=== PATIENT | female | born 1970 | race Caucasian/White ===

== ENCOUNTER 2017-06-15 09:51 | Emergency (ER) | payer OTHER ==
[~2017-06-15] VITALS: Ht 167.6 cm; Wt 94.0 kg
[~2017-06-15 09:51] MED LIST: ALBU1AER9 INH; CITA40TA12 PO; CLON0.5T3 PO; GABA-113 PO; SYMIN160 INH; TIOTCAP INH
[2017-06-15 10:05] VITALS: TEMP 36.4; Ht 167.6 cm; Wt 94.0 kg
[2017-06-15] MEDS ORDERED: SULFAMETHOXAZOLE/TRIMETHOPRIM DS 800/160MG TAB PO STA (10:37)
[2017-06-15] MEDS ORDERED: SULF800T23 PO (10:40)
[2017-06-15] MEDS ORDERED: CEPH500C PO (10:40)
--- NOTE | 2017-06-15 10:40 | EMERGENCY ROOM VISIT NOTE ---
ED Visit Note First contact with patient: 10:13 CHIEF COMPLAINT: Infection of the right thigh HISTORY OF PRESENT ILLNESS: This 47-year-old female patient presents to the emergency department via personal vehicle complaining of a red spot on her right thigh that has started 3 days ago. The area has become red, warm, and very painful. The patient denies fever, chills, nausea, or loss of appetite. Movement of the leg is not decreased because of the pain. The patient's tetanus shot is up to date. She does report a previous history of MRSA infection. REVIEW OF SYSTEMS: A review of systems was performed with positives and pertinent negatives listed in the history of present illness. All other systems were reviewed and are negative. ALLERGIES: Reviewed in chart MEDICATIONS: Reviewed in chart PMH: Reviewed in chart SOCIAL HISTORY: She lives at home. She is a current every day smoker, denies alcohol and recreational drug use. PHYSICAL EXAM: Vital Signs: Reviewed Nurse's notes, afebrile, vital signs stable. GENERAL: Pleasant and cooperative, in no acute distress, is non toxic in appearance, well-developed, well-nourished. SKIN: There is a small area of erythema on the right medial thigh, approximately 4 cm diameter. It is warm, very tender to palpation, and mildly swollen. There is no lymphangitic streaking. There is no discharge. There is no fluctuance. There is minimal induration. HEART: Regular rate and rhythm without murmur, gallop, or rub. LUNGS : Clear to auscultation bilaterally without wheezes, rales, or rhonchi. NEURO: Alert and oriented to person, place, and time. Normal sensation to light and sharp touch. Capillary reflex less than 2 seconds. Peripheral pulses 2 + bilaterally. EMERGENCY DEPARTMENT COURSE: I examined the patient. Differential diagnosis includes cellulitis, abscess, insect bite, MRSA infection. The area is quite small, I do not suspect an abscess as there is no fluctuance, I do not feel any labs or imaging are warranted at this time. Given the patient's history of previous MRSA infection, will treat patient with Keflex and Bactrim for broad coverage of cellulitis. Patient was given her first dose of both of these antibiotics in the ED, and prescriptions were sent to her pharmacy. Patient was instructed on management at home, as well as encouraged follow-up with her PCP, and return precautions should her symptoms worsen, she verbalized understanding. Patient was discharged home in stable condition and ambulatory. Problem List Medical Problems: (1) Acute Bronchitis Status: Resolved (2) Acute Pharyngitis Status: Resolved (3) Acute Uri Nos Status: Resolved (4) Asthma, Unspecified Status: Chronic (5) Back pain Status: Resolved (6) Benign essential hypertension Status: Chronic (7) Chronic Sinusitis Nos Status: Chronic (8) COPD (chronic obstructive pulmonary disease) Status: Chronic (9) COPD exacerbation Status: Resolved (10) Esophageal Reflux Status: Chronic (11) Gastroenteritis Status: Resolved (12) Hypertension Nos Status: Chronic (13) Low back pain Status: Resolved (14) Pneumonia Status: Resolved (15) Right foot pain Status: Resolved (16) Toe fracture, left Status: Resolved (17) Toe fracture, left Status: Resolved Surgical Problems: (1) Appendectomy Status: Resolved (2) Lumpectomy of breast Status: Resolved Current/Historical Medications Scheduled Amphetamine-Dextroamphetamine (Amphetamine/Dextroampheta), 30 MG PO BID Budesonide/Formoterol Fumarate (Symbicort 160/4.5 Inhaler ), 2 PUFFS INH BID Cephalexin Monohydrate (Keflex), 500 MG PO QID Citalopram Hydrobromide (Celexa), 40 MG PO DAILY Gabapentin (Neurontin), 600 MG PO TID Hctz/Lisinopril (Lisinopril/Hctz 10/12.5 Mg), 1 TAB PO DAILY Hydroxyzine HCl (Hydroxyzine Pamoate), 25 MG PO TID Lamotrigine (Lamictal), 1 TAB PO BID Sulfa/Trimethoprim (Bactrim Ds 800MG/160MG), 1 TAB PO BID Scheduled PRN Albuterol Sulfate (Proair Respiclick), 2 PUFFS INH Q4 PRN for Wheezing Allergies Coded Allergies: Prochlorperazine (Verified Adverse Reaction, Severe, DYSTONIA, 06/18/16) DYSTONIA Vital Signs Date Time Temp Pulse Resp B/P (MAP) Pulse Ox O2 Delivery O2 Flow Rate FiO2 06/15/17 11:20 73 18 138/83 96 06/15/17 10:05 36.4 84 20 149/94 96 Nasal Cannula Medications Administered Medications (Trade) Dose Ordered Sig/Veronica Route Start Time Stop Time Status Last Admin Dose Admin Cephalexin Monohydrate (Keflex Cap) 500 mg NOW ONCE PO 06/15/17 10:45 06/15/17 10:46 DC 06/15/17 10:45 500 MG Trimethoprim/ Sulfamethoxazole (Septra Ds 800/ 160MG Tab) 1 tab NOW STAT PO 06/15/17 10:37 06/15/17 10:38 DC 06/15/17 10:45 1 TAB Departure Information Impression Primary Impression: Cellulitis of right thigh Dispostion Home / Self-Care Condition GOOD Prescriptions Sulfa/Trimethoprim (Bactrim Ds 800MG/160MG) Tab 1 TAB PO BID for 10 Days, #20 TAB Prov: TrinaSalvatoreDunia Angely, DENA 06/15/17 Cephalexin Monohydrate (Keflex) 500 Mg Cap 500 MG PO QID for 10 Days, #40 CAP Prov: TrinaSalvatoreDunia Angely, BAR ASSISTANT 06/15/17 Referrals No Doctor, Assigned (PCP) Patient Instructions ED Infec Skin Cellulitis, [facility] Additional Instructions You were seen in the Emergency Department for cellulitis. You have been prescribed Keflex and Bactrim to be taken for 10 days. Both of these medications are antibiotics. Stop these medications and contact a medical provider if you were to develop any significant adverse side effects including: wheezing, shortness of breath, passing out, vomiting, or a diffuse rash. Always take antibiotics as directed and COMPLETE the ENTIRE course regardless of the improvement of your symptoms. You should take an [id number] probiotic layer on the antibiotics, to help prevent diarrhea. Look for signs of worsening infection of the wound including: increased pain, swelling, foul discharge, streaking, or fevers/chills/feeling ill. If any of these are noticed you should return to the Emergency Department for further assessment and treatment. For pain control, you can use the following [id number] medicines (if >12 yo): - Extra strength (500mg/tab) Tylenol (acetaminophen) 1-2 tabs every 6-8 hours as needed. Do not exceed 6 tablets in a 24 hour period. Avoid taking more than 3 grams (3000 mg) of Tylenol per day. This includes any other sources of acetaminophen you may take on a regular basis. - Regular strength (200 mg/tab) Advil (ibuprofen) 1-2 tabs every 4-6 hours as needed. Do not exceed a dose of 2400 mg per day. Apply warm compresses to the area to help with pain and also to help improve the infection. Follow up with your PCP in 2 days for recheck, or sooner for worsening symptoms. Return to the emergency department if your symptoms worsen despite treatment course outlined above. Work Instructions Return To Work: 1 day
[2017-06-15] MEDS ORDERED: CEPHALEXIN MONOHYDRATE 250 MG CAP PO ONE (10:45)
[2017-06-15] MEDS ORDERED: LSN/10125 PO (11:12)
[2017-06-15] MEDS ORDERED: VST25HP PO (11:12)
[2017-06-15] MEDS ORDERED: AMPH30TA PO (11:12)
[2017-06-15] MEDS ORDERED: ALBU18002 INH (11:13)
[2017-06-15] MEDS ORDERED: LAMO25TA PO (11:14)
[2017-06-15 11:20] VITALS: BP 138/83; PULSE 73; O2SAT 96
== END 2017-06-15 11:21 | disposition home or self-care (01) ==
LOC: C.EDB 09:52
DX: L03.115 Cellulitis of right lower limb (principal); F17.200 Nicotine dependence, unspecified, uncomplicated; J45.909 Unspecified asthma, uncomplicated; I10 Essential (primary) hypertension; J32.9 Chronic sinusitis, unspecified; J44.9 Chronic obstructive pulmonary disease, unspecified; K21.9 Gastro-esophageal reflux disease without esophagitis; Z86.14 Personal history of Methicillin resistant Staphylococcus aureus infection

== ENCOUNTER 2018-01-13 20:51 | Emergency (ER) | payer OTHER ==
[~2018-01-13] VITALS: Ht 167.6 cm; Wt 91.2 kg
[~2018-01-13 20:51] MED LIST changes: +ALBU18002 INH; -ALBU1AER9 INH; +AMPH30TA PO; -CLON0.5T3 PO; +LAMO25TA PO; +LSN/10125 PO; -TIOTCAP INH; +VST25HP PO
[2018-01-13 20:58] VITALS: TEMP 36.8; Ht 167.6 cm; Wt 91.2 kg
[2018-01-13] MEDS ORDERED: MoRPHine SULFATE 10 MG/ML CARP/VIAL IM STA (21:49)
[2018-01-13] MEDS ORDERED: KETOROLAC TROMETHAMINE 60 MG/2 ML VIAL IM STA (21:49)
[2018-01-13] MEDS ORDERED: OXYCODONE IR HOME PACK PO ONE (22:00)
[2018-01-13] MEDS ORDERED: FLEXERIL HOME PACK 10 MG VIAL PO ONE (22:00)
[2018-01-13 22:58] VITALS: BP 163/114; PULSE 75; O2SAT 96
[2018-01-13] MEDS ORDERED: OXYC1TAB3 PO (22:58)
[2018-01-13] MEDS ORDERED: CYCL10TA6 PO (22:58)
--- NOTE | 2018-01-13 23:20 | EMERGENCY ROOM VISIT NOTE ---
History First contact with patient: 21:11 Chief Complaint: BACK PAIN Stated Complaint: BACK PAIN History of Present Illness The patient is a 47 year old female who presents to the Emergency Room with complaints of generalized back pain. Patient reports a history of chronic back pain. She has previously been under the management of [facility] several years ago. The patient reports that she usually "just deals with the pain". The patient reports that she recently moved to a new [facility] apartment, and flared up her back pain again. She has tried multiple things for her back pain, including use of her TENS unit, heat, ice, Tylenol, ibuprofen and Aleve. She also reports a history of sciatica, but denies any worsening pain radiating into the buttocks or down the legs. She denies headache, chest pain or shortness of breath. The patient reports that she recently had an adjustment of her gabapentin to 300 mg twice daily. The patient denies any recent falls or other traumatic injuries to the back. She rates her discomfort an 8 out of 10. Her pain is worsened with movement. Review of Systems 10 system review was performed and was negative except for pertinent positives and negatives as indicated in history of present illness Past Medical/Surgical History Medical Problems: (1) Acute Bronchitis (2) Acute Pharyngitis (3) Acute Uri Nos (4) Asthma, Unspecified (5) Back pain (6) Benign essential hypertension (7) Chronic Sinusitis Nos (8) COPD (chronic obstructive pulmonary disease) (9) COPD exacerbation (10) Esophageal Reflux (11) Gastroenteritis (12) Hypertension Nos (13) Low back pain (14) Pneumonia (15) Right foot pain (16) Toe fracture, left (17) Toe fracture, left Surgical Problems: (1) Appendectomy (2) Lumpectomy of breast Family History Cancer Diabetes mellitus Heart disease Hypertension Lung disease Social History Smoking Status: Current Every Day Smoker Alcohol Use: none Drug Use: none Marital Status: single Occupation Status: unemployed Current/Historical Medications Scheduled Citalopram Hydrobromide (Celexa), 40 MG PO DAILY Gabapentin (Neurontin), 600 MG PO TID Hctz/Lisinopril (Lisinopril/Hctz 10/12.5 Mg), 1 TAB PO DAILY Scheduled PRN Albuterol Sulfate (Proair Respiclick), 2 PUFFS INH Q4 PRN for Wheezing Cyclobenzaprine Hcl (Flexeril), 10 MG PO TID PRN for spasm Oxycodone Ir (Roxicodone Ir), 1-2 TAB PO Q4H PRN for Pain Physical Exam Vital Signs Date Time Temp Pulse Resp B/P (MAP) Pulse Ox O2 Delivery O2 Flow Rate FiO2 01/13/18 20:58 36.8 79 18 179/109 98 Room Air Physical Exam CONSTITUTIONAL: Healthy and well nourished. Alert and oriented X 3 with positive affect. Patient appears in moderate discomfort. HEENT: Normocephalic, atraumatic. Pupils equal, round and reactive. No scleral icterus or conjunctival injection. NECK: Full active range of motion without discomfort. Minimal tenderness to palpation of the lower cervical paraspinous muscles. RESPIRATORY: Clear to auscultation bilaterally with no wheezing, crackles, rhonchi or stridor. CARDIOVASCULAR: Regular rate and rhythm with no murmurs, rubs or gallops. GASTROINTESTINAL: Bowel sounds present in all quadrants. Soft and nontender to palpation. MUSCULOSKELETAL: Examination shows generalized tenderness to palpation of the thoracolumbar paraspinous muscles. Negative logroll. Negative straight leg raise. INTEGUMENTARY: No rash or other significant dermatologic conditions noted. NEUROLOGIC: No focal neurologic deficits noted. Medical Decision & Procedures Medications Administered Medications (Trade) Dose Ordered Sig/Veronica Route Start Time Stop Time Status Last Admin Dose Admin Ketorolac Tromethamine (Toradol Inj) 60 mg NOW STAT IM 01/13/18 21:49 01/13/18 21:50 DC 01/13/18 22:01 60 MG Morphine Sulfate (MoRPHine SULFATE INJ) 10 mg NOW STAT IM 01/13/18 21:49 01/13/18 21:50 DC 01/13/18 22:01 10 MG Cyclobenzaprine HCl (FLEXERIL 10MG Home Pack) 1 homepack UD ONCE PO 01/13/18 22:00 01/13/18 22:01 DC 01/13/18 22:00 1 HOMEPACK Oxycodone HCl (Roxicodone Immediate Rel 5MG Home Pack) 1 homepack UD ONCE PO 01/13/18 22:00 01/13/18 22:01 DC 01/13/18 22:00 1 HOMEPACK ED Course Patient history and physical exam were performed. Nurse's notes were reviewed. Vital signs were reviewed, showing an elevated blood pressure 179/109. She does appear in moderate distress. The patient was administered IM morphine and Toradol. She refused any antiemetics, denying any nausea. The patient had reduction of her pain to a 5 out of 10, reporting that it is manageable and requested discharge home. The patient will be provided home packs and prescriptions for Flexeril and OxyIR. No drinking or driving while taking these medications. She was encouraged to also continue alternating ibuprofen and Tylenol every 4 hours for baseline pain relief. I did encourage the patient to follow-up with her PCP early next week for recheck. Return to the emergency department for uncontrollable pain or other concerning symptoms. The patient was happy with plan of care, and voiced understanding of all discharge instructions. The patient also had a persistent elevated blood pressure at the time of discharge. She was instructed to have her blood pressure rechecked by her PCP next week. Medical Decision Given patient history, I suspect musculoskeletal strain. The patient denies any trauma to warrant additional imaging studies. I do not suspect cardiopulmonary etiology, renal etiology or intra-abdominal etiology. Her pain is worsened with movement, and has tenderness to palpation of the paraspinous muscles. [facility] Drug Monitoring Program Search Results: patient reviewed within database, no issues identified Medication Reconcilliation Current Medication List: was personally reviewed by me Blood Pressure Screening Patient's blood pressure: Elevated blood pressure Blood pressure disposition: Referred to PCP Impression Primary Impression: Back strain Additional Impression: Elevated blood pressure reading Departure Information Dispostion Home / Self-Care Prescriptions Oxycodone Ir (Roxicodone Ir) 5 Mg Tab 1-2 TAB PO Q4H Y for Pain, #15 TAB For Initial Treatment Prov: Greg Sofia PA 01/13/18 Cyclobenzaprine Hcl (FLEXERIL) 10 Mg Tab 10 MG PO TID Y for spasm, #15 TAB Prov: Greg Sofia PA 01/13/18 Forms HOME CARE DOCUMENTATION FORM, IMPORTANT VISIT INFORMATION Patient Instructions [facility] Additional Instructions Intermittently apply heat to back. Avoid heavy lifting or sitting for long periods of time. Ibuprofen 800 mg and/or Tylenol 1000 mg every 8 hours. You may also alternate these medications for more effective pain relief: Ibuprofen --4 HRS--> Tylenol --4 HRS--> ibuprofen --4 HRS--> Tylenol .... Flexeril to prevent spasm. OxyIR if needed for worse pain. Do not drink alcohol or drive while taking these medications. Follow-up with your PCP for recheck in 2-3 days. Return to the emergency department for any progressively worsening/ uncontrollable pain. Your blood pressure was elevated in the emergency department (179/109, 163/114) . Follow-up with your PCP for blood pressure recheck. Problem Qualifiers Primary Impression: Back strain Encounter type: initial encounter Qualified Codes: S39.012A - Strain of muscle, fascia and tendon of lower back, initial encounter
== END 2018-01-13 22:58 | disposition home or self-care (01) ==
LOC: C.EDB 20:52 → C.EDD 22:58
DX: S39.012A Strain of muscle, fascia and tendon of lower back, initial encounter (principal); X58.XXXA Exposure to other specified factors, initial encounter; I10 Essential (primary) hypertension; J45.909 Unspecified asthma, uncomplicated; G89.29 Other chronic pain; J44.9 Chronic obstructive pulmonary disease, unspecified; K21.9 Gastro-esophageal reflux disease without esophagitis; Z87.01 Personal history of pneumonia (recurrent); F17.210 Nicotine dependence, cigarettes, uncomplicated; Z79.899 Other long term (current) drug therapy; Z80.9 Family history of malignant neoplasm, unspecified; Z83.3 Family history of diabetes mellitus; Z82.49 Family history of ischemic heart disease and other diseases of the circulatory system

== ENCOUNTER 2020-12-06 21:48 | Inpatient (IN) ==
[2020-12-06 22:43] LABS: Basophils # (auto) 0.04 K/uL (0-0.2); Basophils % (auto) 0.5 %; Eosinophils # (auto) 0.29 K/uL (0-0.5); Eosinophils % (auto) 3.7 %; Hematocrit (blood only) 33.8 % (37-47); Hemoglobin 10.7 g/dL (12.0-16.0); Immature Granulocytes # (auto) 0.01 K/uL (0.00-0.02); Immature Granulocytes % (auto) 0.1 %; Lymphocytes # (auto) 2.27 K/uL (1.2-3.4); Lymphocytes % (auto) 28.8 %; Mean Corpuscular Hemoglobin 25.1 pg (25-34); Mean Corpuscular Hgb Conc 31.7 g/dL (32-36); Mean Corpuscular Volume 79.3 fL (80-100); Mean Platelet Volume 11.8 fL (7.4-10.4); Monocytes # (auto) 0.43 K/uL (0.11-0.59); Monocytes % (auto) 5.5 %; Neutrophils # (auto) 4.84 K/uL (1.4-6.5); Neutrophils % (auto) 61.4 %; Platelet Count 239 K/uL (130-400); RDW Coefficient of Variation 17.3 % (11.5-14.5); RDW Standard Deviation 49.7 fL (36.4-46.3); Red Blood Count 4.26 M/uL (4.2-5.4); White Blood Count 7.88 K/uL (4.8-10.8)
[2020-12-06 22:47] LABS: Appearance Urine Cloudy (Clear); Bacteria Urine Automated Negative (Negative); Bilirubin Urine Negative (Negative); Blood Urine 3+ (Negative); Color Urine Orange; Epithelial Cell Urine Auto >30 /lpf (0-5); Glucose Urine UA Negative (Negative); Ketones Urine Trace (Negative); Leukocyte Esterase Urine Trace (Negative); Nitrite Urine Negative (Negative); Protein Urine Trace (Negative); RBC Urine Automated >30 /hpf (0-4); Specific Gravity Urine 1.027 (1.000-1.030); Urobilinogen Urine Negative (Negative); pH Urine 6.5 (4.5-7.5)
[2020-12-06 22:51] LABS: Partial Thromboplastin Ratio 0.9; Partial Thromboplastin Time 23.9 Seconds (21.0-31.0)
[2020-12-06 23:00] LABS: Alanine Aminotransferase 19 U/L (12-78); Albumin Level 3.4 gm/dl (3.4-5.0); Aspartate Aminotransferase 9 U/L (15-37); BUN Creatinine Ratio 10.7 (10-20); Blood Urea Nitrogen 9 mg/dl (7-18); Carbon Dioxide 26 mmol/L (21-32); Chloride 108 mmol/L (98-107); Est GFR (African American) 93.9; Glucose 87 mg/dl (70-99); Magnesium 2.1 mg/dl (1.8-2.4); Sodium 140 mmol/L (136-145)
[2020-12-06 23:04] LABS: Amphetamines+Metham, Urine Pos (Neg); Barbiturates, Urine Neg (Neg); Benzodiazepine, Urine Pos (Neg); Cocaine, Urine Neg (Neg); MDMA (Ecstacy), Urine Neg (Neg); Methadone, Urine Neg (Neg); Opiate, Urine Neg (Neg); Phencyclidine, Urine Neg (Neg)
[2020-12-06] MEDS ORDERED: OPTIRAY 320 125ml IV ONE (23:10)
[2020-12-06 23:11] LABS: Albumin Globulin Ratio 0.8 (0.9-2); Alkaline Phosphatase 77 U/L (45-117); Bilirubin,Total 0.2 mg/dl (0.2-1); Globulin 4.3 gm/dl (2.5-4.0); Total Protein 7.7 gm/dl (6.4-8.2); Troponin I < 0.015 ng/ml (0-0.045)
[2020-12-06 23:24] LABS: T4 Free Thyroxine 0.94 ng/dl (0.8-1.6)
--- NOTE | 2020-12-07 00:50 | Emergency Department Note ---
History of Present Illness General Chief complaint: Stroke/CVA Symptoms Stated complaint: PT THINKS SHE HAD MINI [id number] TO TALK Time Seen by Provider: 12/06/20 22:01 History of Present Illness Maximum Pain Intensity: 7 This is a 50-year-old female presenting to the emergency department for evaluation of possible mini strokes. The patient states that yesterday around 12 noon, nearly 36 hours ago, she had an episode of dizziness, difficulty speaking, and facial tingling. The episode lasted less than 5 minutes before improving. The patient was somewhat confused after this occurred but did not seek additional medical intervention. She went through the rest of her day w ithout difficulty, and states that this morning around 8 AM she had another similar episode. The patient has an autistic son at home and elected to wait until he went to bed before seeking additional medical care. The patient has a history of COPD. She has not had any fevers or chills. She currently is asymptomatic and has not had difficulty moving her arms or legs. She did have symptoms like this in her 20s, which were felt to be related to control. She has not had any recurrent symptoms since then. She rates her current discomfort a 4/10. Home Medications Medication Instructions Recorded Confirmed Type albuterol sulfate [ProAir HFA] 2 puff INHALATION Q4H PRN 06/24/18 12/07/20 History citalopram [Celexa] 40 mg PO QAM 06/24/18 12/07/20 History albuterol sulfate 2.5 mg INH QID PRN #1 box 10/10/18 12/07/20 Rx Spiriva with HandiHaler 1 cap INHALATION QAM 05/29/19 12/06/20 History zolpidem [Ambien] 10 mg PO HS PRN 05/29/19 12/07/20 History fluticasone propionate 2 spray INTRANASAL BID PRN 06/18/20 12/07/20 History loratadine [Claritin] 10 mg PO QAM 06/18/20 12/07/20 History meloxicam 7.5 mg PO DAILY 06/18/20 12/07/20 History montelukast [Singulair] 10 mg PO QAM 06/18/20 12/07/20 History alprazolam 0.25 mg PO BID 12/06/20 12/07/20 History dextroamphetamine-amphetamine 20 mg PO BID 12/06/20 12/07/20 History fluticasone propion-salmeterol 1 ea INHALATION BID 12/06/20 12/07/20 History gabapentin 600 mg PO TID 12/06/20 12/07/20 History levothyroxine 100 mcg PO DAILY 12/06/20 12/07/20 History lamotrigine 100 mg PO BID 12/07/20 12/07/20 History lisinopril-hydrochlorothiazide 1 tab PO DAILY 12/07/20 12/07/20 History Allergies Allergy/AdvReac Type Severity Reaction Status Date / Time prochlorperazine AdvReac Severe facial Verified 12/07/20 00:31 dystonia Past Med/Surg History Medical History ADD (attention deficit disorder) Bipolar disorder COPD (chronic obstructive pulmonary disease) controlled Degenerative disc disease left hip/LE radiculopathy GERD (gastroesophageal reflux disease) controlled Hypertension Obesity Thyroid nodule Surgical History History of appendectomy History of lumpectomy of left breast 2012 Family History Father Family history of diabetes mellitus Social History (Updated 06/18/20 @ 16:04 by Gela Temple RN) Smoking Status: Current every day smoker Tobacco Type: Cigarettes Cigarettes Per Day: 15 cigarettes/day (total tobacco use x 25+ years); Second Hand Exposure: No; Tobacco Cessation Education Requested by Patient: No Hx Alcohol Use: No Hx Substance Use: No Preferred Language: Gibraltarian Communication Ability: Effective Licensing Director Required: No Beliefs That Will Affect Care: None marital status: Current Living Situation: Family current occupational status: disabled Other Information That Helps Us Care for You: No Feels Safe at Home: Yes Safety Concerns: Feels Safe At This Time Assistive Devices: Glasses Review of Systems A total of 10 systems reviewed and were otherwise negative Physical Exam Vital Signs Vital Signs - 24 hr 12/06/20 21:52 12/06/20 22:05 12/06/20 22:32 Temperature 36.3 C L Temperature Source Oral Pulse Rate 101 H 84 Pulse Rate from SpO2 Sensor 84 Respiratory Rate 22 16 Respiratory Depth Normal Blood Pressure 141/100 H 137/85 Blood Pressure Mean 113 102 Pulse Oximetry 99 94 97 Oxygen Delivery Method Room Air Room Air Sepsis New/Unexplained Change in Mental Status N/A Sepsis Action Taken by Nursing No Action Required 12/06/20 23:00 12/06/20 23:38 12/07/20 00:00 Temperature Temperature Source Pulse Rate 83 102 H 79 Pulse Rate from SpO2 Sensor 83 101 H 79 Respiratory Rate 15 20 15 Respiratory Depth Blood Pressure 154/96 H 206/137 H 195/116 H Blood Pressure Mean 115 160 142 Pulse Oximetry 96 97 97 Oxygen Delivery Method Room Air Room Air Room Air Sepsis New/Unexplained Change in Mental Status Sepsis Action Taken by Nursing 12/07/20 00:07 12/07/20 00:30 12/07/20 01:00 Temperature Temperature Source Pulse Rate 90 83 81 Pulse Rate from SpO2 Sensor 103 H 82 81 Respiratory Rate 20 14 17 Respiratory Depth Blood Pressure 170/106 H 160/111 H 183/127 H Blood Pressure Mean 127 127 145 Pulse Oximetry 99 96 96 Oxygen Delivery Method Room Air Room Air Room Air Sepsis New/Unexplained Change in Mental Status Sepsis Action Taken by Nursing 12/07/20 01:30 Temperature Temperature Source Pulse Rate 91 H Pulse Rate from SpO2 Sensor 93 H Respiratory Rate 20 Respiratory Depth Blood Pressure 163/126 H Blood Pressure Mean 138 Pulse Oximetry 96 Oxygen Delivery Method Room Air Sepsis New/Unexplained Change in Mental Status Sepsis Action Taken by Nursing VITALS: Vitals are noted on the nurse's note and reviewed by myself. Vital signs stable. GENERAL: Well-developed, well-nourished, white female, who is in no acute distress and resting comfortably. Patient is cooperative with the examination. HEAD: Normocephalic atraumatic. EARS: External ear normal. External auditory canals clear, tympanic membranes pearly joya without erythema or effusion bilaterally. EYES: Pupils equal round and reactive to light and accommodation. Conjunctivae without injection, sclerae without icterus. Extraocular movements intact. NOSE: Patent, turbinates without inflammation or discharge. MOUTH: Mucous membranes moist. Tonsils are not enlarged. Pharynx without erythema, blood, or exudate. Uvula midline. Airway patent. NECK: Supple without nuchal rigidity. No lymphadenopathy. No thyromegaly. Cervical spine is nontender. HEART: Regular rate and rhythm without murmurs gallops or rubs. LUNGS: Wheezing bilateral ABDOMEN: Positive normal bowel sounds x 4. Soft, nontender, without masses or organomegaly. No guarding or rebound tenderness. MUSCULOSKELETAL: No muscle atrophy, erythema, or edema noted. Full range of motion in all extremities. No tenderness to palpation. Strength 5/5 throughout. NEURO: Patient was alert and oriented to person place and time. CN II through XII grossly intact. No focal neurological deficits. Deep tendon reflexes 2+ throughout. GCS 15. Stroke scale 0. SKIN: The skin was without rashes, erythema, edema, or bruising. Capillary refill less than 2 seconds. Course Administered Medications Discontinued Medications Ioversol (Optiray 320 125ml) 118 ml IV ONCE ONE Stop: 12/06/20 23:11 Last Admin: 12/06/20 23:11 Dose: 1 ml Documented by: [id number] Oxycodone HCl (Oxycodone Hcl Ir 5 Mg Tab (Immediate Release)) 5 mg PO NOW STA Stop: 12/07/20 01:54 Last Admin: 12/07/20 02:13 Dose: 5 mg Documented by: [id number] Medical Decision Making Differential Diagnosis Differential diagnosis: Etiologies such as stroke, TIA, benign positional vertigo, labrynthitis, dehydration, hypovolemia, anemia, tumor, infection, hypoglycemia, electrolyte abnormalities, cardiac sources, toxicological sources, central neurologic process, as well as others were entertained. Laboratory Data Result diagrams: 12/06/20 22:27 12/06/20 22:29 Lab Results 12/06/20 12/06/20 12/06/20 Range/Units 22:20 22:20 22:27 WBC (4.8-10.8) K/uL RBC (4.2-5.4) M/uL Hgb (12.0-16.0) g/dL Hct (37-47) % MCV (80-100) fL MCH (25-34) pg MCHC (32-36) g/dL RDW Std Deviation (36.4-46.3) fL RDW Coeff of Gilbert (11.5-14.5) % Plt Count (130-400) K/uL MPV (7.4-10.4) fL Immature Gran % (Auto) % Neut % (Auto) % Lymph % (Auto) % [place] % (Auto) % Eos % (Auto) % Baso % (Auto) % Neut # (Auto) (1.4-6.5) K/uL Lymph # (Auto) (1.2-3.4) K/uL [place] # (Auto) (0.11-0.59) K/uL Eos # (Auto) (0-0.5) K/uL Baso # (Auto) (0-0.2) K/uL Immature Gran # (Auto) (0.00-0.02) K/uL PT 10.0 (9.0-12.0) Seconds INR 1.0 (0.9-1.1) APTT 23.9 (21.0-31.0) Seconds PTT Ratio 0.9 Sodium (136-145) mmol/L Potassium (3.5-5.1) mmol/L Chloride (98-107) mmol/L Carbon Dioxide (21-32) mmol/L Anion Gap (3-11) BUN (7-18) mg/dl Creatinine (0.6-1.2) mg/dl Est Cr Clr Drug Dosing ml/min Est GFR ( Amer) Est GFR (Non-Af Amer) BUN/Creatinine Ratio (10-20) Glucose (70-99) mg/dl Calcium (8.5-10.1) mg/dl Magnesium (1.8-2.4) mg/dl Total Bilirubin (0.2-1) mg/dl AST (15-37) U/L ALT (12-78) U/L Alkaline Phosphatase (45-117) U/L Troponin I (0-0.045) ng/ml Total Protein (6.4-8.2) gm/dl Albumin (3.4-5.0) gm/dl Globulin (2.5-4.0) gm/dl Albumin/Globulin Ratio (0.9-2) TSH (0.300-4.500) uIu/ml Free T4 (0.8-1.6) ng/dl Urine Color Urine Appearance (Clear) Urine pH (4.5-7.5) Ur Specific [place] (1.000-1.030) Urine Protein (Negative) Urine Glucose (UA) (Negative) Urine Ketones (Negative) Urine Blood (Negative) Urine Nitrite (Negative) Urine Bilirubin (Negative) Urine Urobilinogen (Negative) Ur Leukocyte Esterase (Negative) Urine WBC (Auto) (0-5) /hpf Urine RBC (Auto) (0-4) /hpf U Hyaline Cast (Auto) (0-5) /lpf U Epithel Cells (Auto) (0-5) /lpf Urine Bacteria (Auto) (Negative) Urine Opiates Screen (Neg) Ur Methadone, Qual (Neg) Urine Barbiturates (Neg) Ur Phencyclidine (PCP) (Neg) U Amphetamin/Meth Scrn (Neg) MDMA (Ecstasy) Screen (Neg) U Benzodiazepines Scrn (Neg) Ur Cocaine Metabolite (Neg) U Marijuana (THC) Screen (Neg) COVID-19 [id number] SARS-[facility]-2, RNA, NAAT NEGATIVE (NEGATIVE) 12/06/20 12/06/20 12/06/20 Range/Units 22:27 22:29 22:29 WBC 7.88 (4.8-10.8) K/uL RBC 4.26 (4.2-5.4) M/uL Hgb 10.7 L (12.0-16.0) g/dL Hct 33.8 L (37-47) % MCV 79.3 L (80-100) fL MCH 25.1 (25-34) pg MCHC 31.7 L (32-36) g/dL RDW Std Deviation 49.7 H (36.4-46.3) fL RDW Coeff of Gilbert 17.3 H (11.5-14.5) % Plt Count 239 (130-400) K/uL MPV 11.8 H (7.4-10.4) fL Immature Gran % (Auto) 0.1 % Neut % (Auto) 61.4 % Lymph % (Auto) 28.8 % [place] % (Auto) 5.5 % Eos % (Auto) 3.7 % Baso % (Auto) 0.5 % Neut # (Auto) 4.84 (1.4-6.5) K/uL Lymph # (Auto) 2.27 (1.2-3.4) K/uL [place] # (Auto) 0.43 (0.11-0.59) K/uL Eos # (Auto) 0.29 (0-0.5) K/uL Baso # (Auto) 0.04 (0-0.2) K/uL Immature Gran # (Auto) 0.01 (0.00-0.02) K/uL PT (9.0-12.0) Seconds INR (0.9-1.1) APTT (21.0-31.0) Seconds PTT Ratio Sodium 140 (136-145) mmol/L Potassium 4.0 (3.5-5.1) mmol/L Chloride 108 H (98-107) mmol/L Carbon Dioxide 26 (21-32) mmol/L Anion Gap 7.0 (3-11) BUN 9 (7-18) mg/dl Creatinine 0.85 (0.6-1.2) mg/dl Est Cr Clr Drug Dosing 99.0 ml/min Est GFR ( Amer) 93.9 Est GFR (Non-Af Amer) 81.0 BUN/Creatinine Ratio 10.7 (10-20) Glucose 87 (70-99) mg/dl Calcium 9.0 (8.5-10.1) mg/dl Magnesium 2.1 (1.8-2.4) mg/dl Total Bilirubin 0.2 (0.2-1) mg/dl AST 9 L (15-37) U/L ALT 19 (12-78) U/L Alkaline Phosphatase 77 (45-117) U/L Troponin I < 0.015 (0-0.045) ng/ml Total Protein 7.7 (6.4-8.2) gm/dl Albumin 3.4 (3.4-5.0) gm/dl Globulin 4.3 H (2.5-4.0) gm/dl Albumin/Globulin Ratio 0.8 L (0.9-2) TSH 18.000 H (0.300-4.500) uIu/ml Free T4 0.94 (0.8-1.6) ng/dl Urine Color [place] Urine Appearance Cloudy A (Clear) Urine pH 6.5 (4.5-7.5) Ur Specific [place] 1.027 (1.000-1.030) Urine Protein Trace H (Negative) Urine Glucose (UA) Negative (Negative) Urine Ketones Trace H (Negative) Urine Blood 3+ H (Negative) Urine Nitrite Negative (Negative) Urine Bilirubin Negative (Negative) Urine Urobilinogen Negative (Negative) Ur Leukocyte Esterase Trace H (Negative) Urine WBC (Auto) 1-5 (0-5) /hpf Urine RBC (Auto) >30 H (0-4) /hpf U Hyaline Cast (Auto) 1-5 (0-5) /lpf U Epithel Cells (Auto) >30 H (0-5) /lpf Urine Bacteria (Auto) Negative (Negative) Urine Opiates Screen (Neg) Ur Methadone, Qual (Neg) Urine Barbiturates (Neg) Ur Phencyclidine (PCP) (Neg) U Amphetamin/Meth Scrn (Neg) MDMA (Ecstasy) Screen (Neg) U Benzodiazepines Scrn (Neg) Ur Cocaine Metabolite (Neg) U Marijuana (THC) Screen (Neg) COVID-19 Eval Order SARS-CoV-2, RNA, NAAT (NEGATIVE) 12/06/20 Range/Units 22:29 WBC (4.8-10.8) K/uL RBC (4.2-5.4) M/uL Hgb (12.0-16.0) g/dL Hct (37-47) % MCV (80-100) fL MCH (25-34) pg MCHC (32-36) g/dL RDW Std Deviation (36.4-46.3) fL RDW Coeff of Gilbert (11.5-14.5) % Plt Count (130-400) K/uL MPV (7.4-10.4) fL Immature Gran % (Auto) % Neut % (Auto) % Lymph % (Auto) % [place] % (Auto) % Eos % (Auto) % Baso % (Auto) % Neut # (Auto) (1.4-6.5) K/uL Lymph # (Auto) (1.2-3.4) K/uL [place] # (Auto) (0.11-0.59) K/uL Eos # (Auto) (0-0.5) K/uL Baso # (Auto) (0-0.2) K/uL Immature Gran # (Auto) (0.00-0.02) K/uL PT (9.0-12.0) Seconds INR (0.9-1.1) APTT (21.0-31.0) Seconds PTT Ratio Sodium (136-145) mmol/L Potassium (3.5-5.1) mmol/L Chloride (98-107) mmol/L Carbon Dioxide (21-32) mmol/L Anion Gap (3-11) BUN (7-18) mg/dl Creatinine (0.6-1.2) mg/dl Est Cr Clr Drug Dosing ml/min Est GFR ( Amer) Est GFR (Non-Af Amer) BUN/Creatinine Ratio (10-20) Glucose (70-99) mg/dl Calcium (8.5-10.1) mg/dl Magnesium (1.8-2.4) mg/dl Total Bilirubin (0.2-1) mg/dl AST (15-37) U/L ALT (12-78) U/L Alkaline Phosphatase (45-117) U/L Troponin I (0-0.045) ng/ml Total Protein (6.4-8.2) gm/dl Albumin (3.4-5.0) gm/dl Globulin (2.5-4.0) gm/dl Albumin/Globulin Ratio (0.9-2) TSH (0.300-4.500) uIu/ml Free T4 (0.8-1.6) ng/dl Urine Color Urine Appearance (Clear) Urine pH (4.5-7.5) Ur Specific [place] (1.000-1.030) Urine Protein (Negative) Urine Glucose (UA) (Negative) Urine Ketones (Negative) Urine Blood (Negative) Urine Nitrite (Negative) Urine Bilirubin (Negative) Urine Urobilinogen (Negative) Ur Leukocyte Esterase (Negative) Urine WBC (Auto) (0-5) /hpf Urine RBC (Auto) (0-4) /hpf U Hyaline Cast (Auto) (0-5) /lpf U Epithel Cells (Auto) (0-5) /lpf Urine Bacteria (Auto) (Negative) Urine Opiates Screen Neg (Neg) Ur Methadone, Qual Neg (Neg) Urine Barbiturates Neg (Neg) Ur Phencyclidine (PCP) Neg (Neg) U Amphetamin/Meth Scrn Pos H (Neg) MDMA (Ecstasy) Screen Neg (Neg) U Benzodiazepines Scrn Pos H (Neg) Ur Cocaine Metabolite Neg (Neg) U Marijuana (THC) Screen Pos H (Neg) COVID-19 Eval Order SARS-CoV-2, RNA, NAAT (NEGATIVE) Imaging Data Radiologist's Impression: Preliminary Findings Only See Final Report For Complete Findings CT HEAD: Prior head CT, 05/29/2019 No evidence of acute intracranial abnormality or skull fracture. Mild paranasal sinus mucosal thickening and prior sinus surgery as on the prior. Preliminary Findings Only See Final Report For Complete Findings CTA HEAD: Prior head CT today No occlusion or severe stenosis. No aneurysm or dissection. Preliminary Findings Only See Final Report For Complete Findings CTA NECK: Head CT and CTA head also today. No occlusion or severe stenosis. No aneurysm or dissection. Postoperative changes right thyroidectomy. Emphysema. Mild paranasal sinus mucosal thickening. Few opacified bilateral mastoid air cells inferiorly. Degenerative changes of the cervical spine. T4 focal sclerotic lesion. Likely bone island. Correlate if there is concern for metastatic disease. Edentulous. MDM Narrative Physical exam and history were performed. Nursing notes, EMR, and Medication List were personally reviewed. Patient appears to have TIA-like symptoms bringing her to the emergency department. Her symptoms have been ongoing for between 12 and 36 hours at this time. She does not have obvious neurologic deficit and stroke scale is 0. IV access was established and labs were obtained. The patient was sent to CT scan for imaging. An order was placed for continuous cardiac monitoring. The monitor shows a rate of 77 with normal sinus rhythm. The patient blood work is as above and was reviewed. She does not have a significantly elevated white blood cell count. She is mildly anemic at 10.7. Glucose is 87. Troponin x1 is negative. She does not have significant electrolyte imbalance. Covid is negative. TSH is elevated at 18 with a normal T4. CT scans were reviewed by myself and radiology showing no obvious acute findings. Overall the patient does not appear well for discharge home. Her symptoms are concerning for TIA and I do feel that this warrants additional evaluation. The case was discussed with the on-call hospitalist team who agreed to evaluate her here in the ER. Please see their dictation for further patient course, plan, and disposition. The chart was completed utilizing [employer] Voice Recognition Software. Grammatical errors, random word insertions, pronoun errors, and incomplete sentences are an occasional consequence of this system due to software limitations, ambient noise, and hardware issues. Any formal questions or concerns about the content, text, or information contained within the body of this dictation should be directly addressed to the provider for clarification. . Impression & Plan TIA (transient ischemic attack), TSH elevation, Confusion Discharge Plan Visit Data Chief Complaint: Stroke/CVA Symptoms Stated Complaint: PT THINKS SHE HAD MINI [id number] TO TALK ED Provider: Agatha King ED Midlevel Provider: Salomon Mcmahan Discharge Problem: TIA (transient ischemic attack), TSH elevation, Confusion Patient Disposition: Admitted As Inpatient Discharge Instructions Interventions: ED Discharge Assessment Last Done: 12/07/20 02:51
[2020-12-07] MEDS ORDERED: oxyCODONE HCL IR 5 MG TAB (IMMEDIATE RELEASE) PO STA (01:53)
--- NOTE | 2020-12-07 03:49 | History and Physical Report ---
DATE OF ADMISSION: 12/06/2020 CHIEF COMPLAINT: Stroke-like symptoms. HISTORY OF PRESENT ILLNESS: This 50-year-old female with past medical history significant for COPD, chronic rhinitis, hypertension, GERD, degenerative joint disease, tobacco disorder, bipolar, anxiety, obesity, presents with stroke-like symptoms. The patient says yesterday she had a brief episode of 5-10 minutes of not able to speak, confused, that got resolved, but she was feeling weak and tired and sweating and that lasted since yesterday . The first episode of not able to speak on 12/05/2020 and 12/06/2020 morning also she had brief episodes of not able to speak but currently speech is back to normal, but still feeling weak and tired, which prompted her to come to the ER. She has been complaining of lot of headaches. Her blood pressure is running high, says she gets headache if the blood pressure goes high. She is taking lisinopril, hydrochlorothiazide for her blood pressure,has some blurred visions, but no double vision, no earache, no runny nose, no sore throat. She has chronic cough from her COPD. No loss of sense of smell or taste. Appetite is okay. Was nauseous earlier and had couple episodes of vomiting. No abdominal pain, no diarrhea or constipation, no blood in stools or black stools. No hematuria or burning micturition. No rash, no swelling in the legs, otherwise ambulating okay. No imbalance. ALLERGIES: COMPAZINE. PAST MEDICAL HISTORY: As mentioned above. PAST SURGICAL HISTORY: Breast lesion excision, lumpectomy, appendectomy. MEDICATIONS: The patient is on albuterol 2 puffs inhalation q.i.d. p.r.n., albuterol 2 puffs inhalation q. 4 hours p.r.n., alprazolam 0.25 mg p.o. b.i.d., Celexa 40 mg p.o. a.m., Adderall 20 mg p.o. b.i.d., fluticasone propionate inhalation b.i.d., Flonase 2 sprays intranasally b.i.d. p.r.n., gabapentin 600 mg p.o. t.i.d., Lamictal 100 mg p.o. b.i.d., levothyroxine 100 mcg p.o. daily, lisinopril/hydrochlorothiazide 20/25 mg 1 tablet daily, Claritin 10 mg p.o. a.m., meloxicam 7.5 mg p.o. daily, Singulair 10 mg p.o. a.m., Spiriva 18 mcg inhalation a.m., Ambien 10 mg p.o. at bedtime p.r.n. FAMILY HISTORY: Significant for brother has arthritis, hypertension. Father had COPD, hypertension, [place], diabetes, arthritis. Mother has arthritis, heart disorder, hypertension. SOCIAL HISTORY: Currently smokes 1 pack a day for the last 24 years. No alcohol use, no drug use. REVIEW OF SYMPTOMS: As per HPI. Rest of the review of systems negative. PHYSICAL EXAMINATION: GENERAL: The patient is obese, not in acute distress. VITAL SIGNS: Temperature 36.3, pulse 91, respiratory rate 20, blood pressure 183/127, oxygen 96% room air. HEENT: Pupils equal, round, reactive to light. Oral mucosa moist. NECK: No JVD. No neck masses. CARDIOVASCULAR: S1, S2 heard, regular rate and rhythm, no murmur, no gallop. RESPIRATORY SYSTEM: Normal AP diameter. No accessory muscle use. No wheezing, no crackles. ABDOMEN: Soft, bowel sounds present, nontender. No distention. CENTRAL NERVOUS SYSTEM: Alert and oriented. Speech is clear, no facial droop. Cranial nerves II-XII grossly intact. Power 5/5 in all extremities. Coordination of movements normal. Sensation is intact. Position sense intact. EXTREMITIES: No edema, no erythema. LABORATORY DATA: WBC 7.8, hemoglobin 10.7, hematocrit 33.8, platelets 239. PT 10.8, INR 1, APTT 23.9. Sodium 140, potassium 4, chloride 108, bicarbonate 26, BUN 9, creatinine 0.85, serum glucose 87, calcium 9, magnesium 2.1, total bilirubin 0.2, AST 9, ALT 19, alkaline phosphatase 77. Troponin I less than 0.015. TSH 18, free T4 0.94. Urinalysis, +3 blood, trace leukocyte esterase. Urine drug screen, amphetamine positive, positive for benzodiazepine, positive for marijuana. SARS-CoV-2 RNA negative. IMAGING: Chest x-ray, no acute findings. Ct head no acute findings. CTA of the head and neck: No acute findings except T4 focal sclerotic lesion, likely bone island. EKG: Normal sinus rhythm, rate of 84, no significant change was found. ASSESSMENT AND PLAN: This is a 50-year-old female who presents with stroke-like symptoms. 1. Stroke-like symptoms. 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 Initial Ct head, CTA of the head and neck was unremarkable.Will follow final report. We will follow the full stroke workup with MRI scan, echocardiogram, speech evaluation, neuro evaluation, PT, OT. Monitor in the tele floor. 2. Weakness, not feeling well. COVID is negative. Her urine is slightly positive, we will empirically start on Rocephin. Follow the urine cultures. We will follow the PT/OT, gentle fluids and monitor. 3. Hypertensive urgency. Until stroke is ruled out, we will follow with permissive hypertension. Continue home lisinopril/hydrochlorothiazide and labetalol p.r.n. and monitor the blood pressure. 4. History of chronic obstructive pulmonary disease. Continue home inhalers and nebs. 5. Obesity, needs counseling. 6. Bipolar disorder. Continue home medications. 7. Deep vein thrombosis prophylaxis, sequential compression devices for now. 7. Disposition: Closely monitor in tele floor. Level 1 full code. Expect discharge home and follow with family doctor. MORGAN
[2020-12-07] MEDS ORDERED: ACETAMINOPHEN 325 MG TAB PO PRN (04:39)
[2020-12-07] MEDS ORDERED: PHARMACIST DISCHARGE MED REC CONSULT PRN (04:39)
[2020-12-07] MEDS ORDERED: FLUTICASONE PROPIONATE NA SPR 16 GM BTL PRN (04:39)
[2020-12-07] MEDS ORDERED: SODIUM CHLORIDE 0.9% 1000ML 1,000 ML IV SCH (04:39)
[2020-12-07] MEDS ORDERED: NITROGLYCERIN SL 0.4 MG/TAB TAB SL PRN (04:39)
[2020-12-07] MEDS ORDERED: ONDANSETRON INJ 2 MG/ML 2 ML VIAL IV PRN (04:39)
[2020-12-07] MEDS ORDERED: ZOLPIDEM TARTRATE 10 MG TAB PO PRN (04:39)
[2020-12-07] MEDS ORDERED: LABETALOL HCL IV 5 MG/ML 20ML IV PRN (04:39)
[2020-12-07] MEDS ORDERED: POLYETHYLENE (MIRALAX) 17 GM PACK PO PRN (04:39)
[2020-12-07] MEDS ORDERED: ALBUTEROL 0.083% NEBU SOLN 3 ML VIAL INH PRN (04:39)
[2020-12-07] MEDS ORDERED: ALBUTEROL HFA 8 GM INHALER INH PRN (04:47)
[2020-12-07] MEDS: lamoTRIgine 100 MG TAB PO SCH ×2 (05:58→09:03)
[2020-12-07] MEDS ORDERED: cefTRIAXone SODIUM 2,000 MG in DEXTROSE 5% 50 ML IV SCH (06:00)
[2020-12-07] MEDS ORDERED: LEVOTHYROXINE SODIUM 100 MCG TABLET PO SCH (06:30)
--- NOTE | 2020-12-07 07:39 | CT Scan Report ---
CT OF THE HEAD WITHOUT CONTRAST CLINICAL HISTORY: TIA symptoms. COMPARISON STUDY: Head CT May 29, 2019. TECHNIQUE: Helical axial images of the head were obtained without IV contrast. Automated exposure con trol was utilized for the study. A dose lowering technique was utilized adhering to the principles o f ALARA. FINDINGS: No acute intracranial hemorrhage, midline shift or mass effect is present. The ventricular system is unremarkable. The basal cisterns are patent. No extra-axial collections are present. There are no findings to suggest acute dural sinus thrombosis or acute territorial infarct. No significant calvarial abnormalities are present. A small amount of fluid within the bilateral mastoid air cells i s noted. There are postoperative findings within the sinuses. There is moderate polypoid mucosal thic kening of the left ethmoid sinuses. IMPRESSION: No acute intracranial findings. ACT 112: Negative or not required by law. Electronically signed by: Delgado Davila M.D. 12/07/2020 7:37 AM
[2020-12-07 07:43] LABS: Basophils # (auto) 0.06 K/uL (0-0.2); Basophils % (auto) 0.8 %; Eosinophils % (auto) 4.2 %; Hematocrit (blood only) 33.4 % (37-47); Hemoglobin 10.3 g/dL (12.0-16.0); Immature Granulocytes # (auto) 0.01 K/uL (0.00-0.02); Immature Granulocytes % (auto) 0.1 %; Lymphocytes # (auto) 2.38 K/uL (1.2-3.4); Lymphocytes % (auto) 33.2 %; Mean Corpuscular Hemoglobin 24.5 pg (25-34); Mean Corpuscular Hgb Conc 30.8 g/dL (32-36); Mean Corpuscular Volume 79.5 fL (80-100); Monocytes # (auto) 0.38 K/uL (0.11-0.59); Monocytes % (auto) 5.3 %; Neutrophils # (auto) 4.03 K/uL (1.4-6.5); Neutrophils % (auto) 56.4 %; Platelet Count 212 K/uL (130-400); RDW Coefficient of Variation 17.3 % (11.5-14.5); RDW Standard Deviation 50.1 fL (36.4-46.3); White Blood Count 7.16 K/uL (4.8-10.8)
--- NOTE | 2020-12-07 07:43 | CT Scan Report ---
HEAD & NECK CTA HISTORY: Difficulty speaking. Stroke Like Symptoms TECHNIQUE: Multiaxial CT images of the head were performed following the intravenous administration o f contrast to evaluate the major cerebral vessels. Multiaxial CT images of the neck were also perform ed following the intravenous administration of contrast to evaluate the major cervical vessels. Maxim um intensity projection images were also obtained. A dose lowering technique was utilized adhering to the principles of ALARA. COMPARISON: Head CT 12/06/2020. FINDINGS: There is no mass, hematoma, midline shift, or acute infarct. Visualized intracranial internal carotid arteries, distal vertebral arteries, and basilar artery are widely patent. There is no significant s tenosis, occlusion, or aneurysm seen within the bilateral ACAs, MCAs, or radiator core tester. The major dural venous sinuses appear patent. The aortic arch and proximal great vessels are widely patent. There is no significant stenosis, occ lusion, or dissection identified within the bilateral common carotid, internal carotid, or vertebral arteries. Mild calcified plaque within the left carotid bulb. Prior right thyroidectomy. An 8 mm enha ncing nodule anterior to the hyoid bone on image 258 located the midline. This favors ectopic thyroid tissue. Mild mucosal thickening within the left maxillary sinus. Moderate to severe emphysema. IMPRESSION: 1. No significant stenosis, occlusion, or aneurysm within the [place]. 2. No significant stenosis, occlusion, or dissection identified within the carotid or vertebral arter ies. 3. Emphysema. 4. An 8 mm enhancing midline nodule anterior to the hyoid bone. This favors ectopic thyroid tissue. ACT 112: Negative or not required by law. Electronically signed by: Dl Flores M.D. 12/07/2020 7:42 AM
--- NOTE | 2020-12-07 07:43 | CT Scan Report ---
HEAD & NECK CTA HISTORY: Difficulty speaking. Stroke Like Symptoms TECHNIQUE: Multiaxial CT images of the head were performed following the intravenous administration o f contrast to evaluate the major cerebral vessels. Multiaxial CT images of the neck were also perform ed following the intravenous administration of contrast to evaluate the major cervical vessels. Maxim um intensity projection images were also obtained. A dose lowering technique was utilized adhering to the principles of ALARA. COMPARISON: Head CT 12/06/2020. FINDINGS: There is no mass, hematoma, midline shift, or acute infarct. Visualized intracranial internal carotid arteries, distal vertebral arteries, and basilar artery are widely patent. There is no significant s tenosis, occlusion, or aneurysm seen within the bilateral ACAs, MCAs, or anchor tack puller. The major dural venous sinuses appear patent. The aortic arch and proximal great vessels are widely patent. There is no significant stenosis, occ lusion, or dissection identified within the bilateral common carotid, internal carotid, or vertebral arteries. Mild calcified plaque within the left carotid bulb. Prior right thyroidectomy. An 8 mm enha ncing nodule anterior to the hyoid bone on image 258 located the midline. This favors ectopic thyroid tissue. Mild mucosal thickening within the left maxillary sinus. Moderate to severe emphysema. IMPRESSION: 1. No significant stenosis, occlusion, or aneurysm within the [place]. 2. No significant stenosis, occlusion, or dissection identified within the carotid or vertebral arter ies. 3. Emphysema. 4. An 8 mm enhancing midline nodule anterior to the hyoid bone. This favors ectopic thyroid tissue. ACT 112: Negative or not required by law. Electronically signed by: Dl Flores M.D. 12/07/2020 7:42 AM
--- NOTE | 2020-12-07 08:07 | XRay Report ---
XR chest 1V portable CLINICAL HISTORY: Strokelike symptoms COMPARISON STUDY: 01/27/2019 FINDINGS: The heart is the upper limits of normal in size. There is mild interstitial prominence with out evidence of overt failure. Increased basilar markings are likely atelectatic. There is no lobar c onsolidation. There are no large pleural effusions[ IMPRESSION: Mild prominence the basilar markings statistically atelectatic. No evidence of lobar cons olidation ACT 112: Negative or not required by law. Electronically signed by: Dontrell Black M.D. 12/07/2020 8:05 AM
[2020-12-07 08:17] LABS: BUN Creatinine Ratio 12.7 (10-20); Calcium 8.6 mg/dl (8.5-10.1); Creatinine Clr Calc Pharmacy 104.2 ml/min; Est GFR (Non-African American) 87.2; Potassium 3.7 mmol/L (3.5-5.1)
[2020-12-07 08:21] LABS: Ferritin 6.6 ng/ml (8-388)
[2020-12-07] MEDS ORDERED: AMPHETAMINE ASP/SULF/DEXTRAMPH 5 MG TAB PO SCH (09:00)
[2020-12-07] MEDS ORDERED: MELOXICAM 7.5 MG TAB PO SCH (09:00)
[2020-12-07] MEDS ORDERED: ALPRAZolam 0.25 MG TABLET PO SCH (09:00)
[2020-12-07] MEDS ORDERED: UMECLIDINIUM BROMIDE 62.5MCG/BLISTER 7 PUFFS/INHALER INH SCH (09:00)
[2020-12-07] MEDS ORDERED: ASPIRIN 81 MG ECTAB PO SCH (09:00)
[2020-12-07] MEDS ORDERED: MONTELUKAST SODIUM 10 MG TABLET PO SCH (09:00)
[2020-12-07] MEDS ORDERED: CITALOPRAM 40 MG TAB PO SCH (09:00)
[2020-12-07] MEDS ORDERED: lisinopril 20 MG TAB PO SCH (09:00)
[2020-12-07] MEDS ORDERED: FLUTICASONE/VILANTEROL 100/25MCG 14 PUFFS/INHALER INH SCH (09:00)
[2020-12-07] MEDS ORDERED: hydroCHLOROthiazide 25 MG TAB PO SCH (09:00)
[2020-12-07] MEDS ORDERED: LORATADINE 10 MG TAB PO SCH (09:00)
[2020-12-07] MEDS: GABAPENTIN 600 MG TAB PO SCH ×2 (09:02→14:41)
[2020-12-07 09:36] LABS: Estimated Average Glucose 117 mg/dl; Hemoglobin A1C 5.7 % (4.5-5.6)
[2020-12-07 10:47] LABS: Folate (Folic Acid) 7.3 ng/ml (>5.38)
[2020-12-07] MEDS ORDERED: LORazepam 0.5 MG TAB PO PRN (12:21)
--- NOTE | 2020-12-07 12:29 | Neurology Consultation ---
Date of Consultation December 07, 2020 Assessment & Plan (1) TIA (transient ischemic attack): 1. MRI brain if not already ordered 2. TTE 3. start aspirin 81 mg 4. PT/OT for discharge needs 5. optimize HTN HLD, DM LDL <70 (2) Confusion: Supervising Physician Co-Signing Physician Notes I have seen and discussed above patient with Dr Kali Jensen History of Present Illness Reason for Consultation: Stroke Like symptoms Requesting Physician: Mikael Shaw MD Attending Physician: Mikael Shaw MD History of Present Illness Rose is a 50 year old female with PMH- COPD, chronic rhinitis, HTN, GERD, DJD, tobacco disorder, bipolar, anxiety, obesity, presented to [facility] ED with stroke- like symptoms. She had a brief episode of 5-10 minutes of not able to speak, confused which resolved. Then she was feeling weak and tired and sweating. The first episode of not able to speak on 12/05/2020 and 12/06/2020 morning also she had brief episodes of not able to speak but currently speech is back to normal, but still feeling weak and tired, which prompted her to come to the ER. She also has been having alot of headaches when her blood pressure goes high. She is taking lisinopril, hydrochlorothiazide for her blood pressure. Allergies Allergy/AdvReac Type Severity Reaction Status Date / Time prochlorperazine AdvReac Severe facial Verified 12/07/20 00:31 dystonia Home Medications Medication Instructions Recorded Confirmed Type albuterol sulfate [ProAir HFA] 2 puff INHALATION Q4H PRN 06/24/18 12/07/20 History citalopram [Celexa] 40 mg PO QAM 06/24/18 12/07/20 History albuterol sulfate 2.5 mg INH QID PRN #1 box 10/10/18 12/07/20 Rx Spiriva with HandiHaler 1 cap INHALATION QAM 05/29/19 12/06/20 History zolpidem [Ambien] 10 mg PO HS PRN 05/29/19 12/07/20 History fluticasone propionate 2 spray INTRANASAL BID PRN 06/18/20 12/07/20 History loratadine [Claritin] 10 mg PO QAM 06/18/20 12/07/20 History meloxicam 7.5 mg PO DAILY 06/18/20 12/07/20 History montelukast [Singulair] 10 mg PO QAM 06/18/20 12/07/20 History alprazolam 0.25 mg PO BID 12/06/20 12/07/20 History dextroamphetamine-amphetamine 20 mg PO BID 12/06/20 12/07/20 History fluticasone propion-salmeterol 1 ea INHALATION BID 12/06/20 12/07/20 History gabapentin 600 mg PO TID 12/06/20 12/07/20 History levothyroxine 100 mcg PO DAILY 12/06/20 12/07/20 History lamotrigine 100 mg PO BID 12/07/20 12/07/20 History lisinopril-hydrochlorothiazide 1 tab PO DAILY 12/07/20 12/07/20 History Patient History Medical History ADD (attention deficit disorder) Bipolar disorder COPD (chronic obstructive pulmonary disease) controlled Degenerative disc disease left hip/LE radiculopathy GERD (gastroesophageal reflux disease) controlled Hypertension Obesity Thyroid nodule Surgical History History of appendectomy History of lumpectomy of left breast 2012 Family History Father Family history of diabetes mellitus Social History (Updated 06/18/20 @ 16:04 by Gela Temple RN) Smoking Status: Current every day smoker Tobacco Type: Cigarettes Cigarettes Per Day: 15 cigarettes/day (total tobacco use x 25+ years); Second Hand Exposure: No; Tobacco Cessation Education Requested by Patient: No Hx Alcohol Use: No Hx Substance Use: No Preferred Language: [place] Communication Ability: Effective Manager Quality Required: No Beliefs That Will Affect Care: None marital status: Current Living Situation: Family current occupational status: disabled Other Information That Helps Us Care for You: No Feels Safe at Home: Yes Safety Concerns: Feels Safe At This Time Assistive Devices: Glasses Results & Data ([facility]) Vital Signs (Past 12 Hours) Vital Signs Temp Pulse Pulse Resp BP BP Pulse Ox 12/07/20 11:50 12/07/20 11:01 92 12/07/20 10:33 85 12/07/20 07:31 36.6 C 78 18 148/87 H 96 12/07/20 06:04 77 12/07/20 04:39 36.6 C 77 18 143/86 H 95 12/07/20 02:30 79 17 168/127 H 95 12/07/20 02:00 74 13 207/119 H 95 12/07/20 01:30 91 H 20 163/126 H 96 12/07/20 01:00 81 17 183/127 H 96 12/07/20 00:30 83 14 160/111 H 96 Pulse Ox Pulse Ox 12/07/20 11:50 92 12/07/20 11:01 12/07/20 10:33 12/07/20 07:31 12/07/20 06:04 12/07/20 04:39 95 12/07/20 02:30 12/07/20 02:00 12/07/20 01:30 12/07/20 01:00 12/07/20 00:30 Laboratory Results Abnormal lab results 12/06/20 12/06/20 12/06/20 Range/Units 22:27 22:29 22:29 Hgb 10.7 L (12.0-16.0) g/dL Hct 33.8 L (37-47) % MCV 79.3 L (80-100) fL MCH (25-34) pg MCHC 31.7 L (32-36) g/dL RDW Std Deviation 49.7 H (36.4-46.3) fL RDW Coeff of Gilbert 17.3 H (11.5-14.5) % MPV 11.8 H (7.4-10.4) fL Chloride 108 H (98-107) mmol/L Glucose (70-99) mg/dl Hemoglobin A1c (4.5-5.6) % Iron (35-150) mcg/dl Ferritin (8-388) ng/ml AST 9 L (15-37) U/L Globulin 4.3 H (2.5-4.0) gm/dl Albumin/Globulin Ratio 0.8 L (0.9-2) Cholesterol (0-200) mg/dl TSH 18.000 H (0.300-4.500) uIu/ml Urine Appearance Cloudy A (Clear) Urine Protein Trace H (Negative) Urine Ketones Trace H (Negative) Urine Blood 3+ H (Negative) Ur Leukocyte Esterase Trace H (Negative) Urine RBC (Auto) >30 H (0-4) /hpf U Epithel Cells (Auto) >30 H (0-5) /lpf U Amphetamin/Meth Scrn (Neg) U Benzodiazepines Scrn (Neg) U Marijuana (THC) Screen (Neg) 12/06/20 12/07/20 12/07/20 Range/Units 22:29 07:24 07:24 Hgb 10.3 L (12.0-16.0) g/dL Hct 33.4 L (37-47) % MCV 79.5 L (80-100) fL MCH 24.5 L (25-34) pg MCHC 30.8 L (32-36) g/dL RDW Std Deviation 50.1 H (36.4-46.3) fL RDW Coeff of Gilbert 17.3 H (11.5-14.5) % MPV 11.0 H (7.4-10.4) fL Chloride 109 H (98-107) mmol/L Glucose 101 H (70-99) mg/dl Hemoglobin A1c (4.5-5.6) % Iron 17 L (35-150) mcg/dl Ferritin 6.6 L (8-388) ng/ml AST (15-37) U/L Globulin (2.5-4.0) gm/dl Albumin/Globulin Ratio (0.9-2) Cholesterol 206 H (0-200) mg/dl TSH (0.300-4.500) uIu/ml Urine Appearance (Clear) Urine Protein (Negative) Urine Ketones (Negative) Urine Blood (Negative) Ur Leukocyte Esterase (Negative) Urine RBC (Auto) (0-4) /hpf U Epithel Cells (Auto) (0-5) /lpf U Amphetamin/Meth Scrn Pos H (Neg) U Benzodiazepines Scrn Pos H (Neg) U Marijuana (THC) Screen Pos H (Neg) 12/07/20 Range/Units 07:24 Hgb (12.0-16.0) g/dL Hct (37-47) % MCV (80-100) fL MCH (25-34) pg MCHC (32-36) g/dL RDW Std Deviation (36.4-46.3) fL RDW Coeff of Gilbert (11.5-14.5) % MPV (7.4-10.4) fL Chloride (98-107) mmol/L Glucose (70-99) mg/dl Hemoglobin A1c 5.7 H (4.5-5.6) % Iron (35-150) mcg/dl Ferritin (8-388) ng/ml AST (15-37) U/L Globulin (2.5-4.0) gm/dl Albumin/Globulin Ratio (0.9-2) Cholesterol (0-200) mg/dl TSH (0.300-4.500) uIu/ml Urine Appearance (Clear) Urine Protein (Negative) Urine Ketones (Negative) Urine Blood (Negative) Ur Leukocyte Esterase (Negative) Urine RBC (Auto) (0-4) /hpf U Epithel Cells (Auto) (0-5) /lpf U Amphetamin/Meth Scrn (Neg) U Benzodiazepines Scrn (Neg) U Marijuana (THC) Screen (Neg) Diagnostic Findings CTA head/No significant stenosis, occlusion, or aneurysm within the [place]. No significant stenosis, occlusion, or dissection identified within the carotid or vertebral arteries. Emphysema. An 8 mm enhancing midline nodule anterior to the hyoid bone. This favors ectopic thyroid tissue. CT head-No acute intracranial hemorrhage, midline shift or mass effect is present. The ventricular system is unremarkable. The basal cisterns are patent. No extra-axial collections are present. There are no findings to suggest acute dural sinus thrombosis or acute territorial infarct. No significant calvarial abnormalities are present. A small amount of fluid within the bilateral mastoid air cells is noted. There are postoperative findings within the sinuses. There is moderate polypoid mucosal thickening of the left ethmoid sinuses.
--- NOTE | 2020-12-07 12:54 | Consultation Report ---
DATE OF CONSULTATION: 12/07/2020 NEUROLOGY CONSULTATION NOTE CHIEF COMPLAINT: Stroke-like symptoms. HISTORY OF PRESENT ILLNESS: A 50-year-old woman with a history of COPD, hypertension, bipolar mood disorder, anxiety and obesity, admitted yesterday for intermittent speech difficulty, confusion and diaphoresis. The patient had a brief episode lasting 5-10 minutes where she was unable to speak. She was noted to be confused, which had since resolved upon arrival. She was feeling weak and tired, and she was also sweating. She had a similar episode on 12/05/2020 and then again on 12/06/2020. In the Emergency Room Department, her speech was back to baseline, although she felt weak and tired. She has been suffering a lot of headaches. Her blood pressure was running high. She is on lisinopril as well as HCTZ for blood pressure. She does have a chronic cough from COPD. The patient was admitted for evaluation of possible stroke. Neurology was consulted upon admission. ALLERGIES: COMPAZINE. PAST MEDICAL HISTORY: COPD, chronic rhinitis, hypertension, GERD, degenerative joint disease, tobacco disorder, bipolar mood disorder, anxiety, obesity. PAST SURGICAL HISTORY: Breast lesion excision, lumpectomy, appendectomy. HOME MEDICATIONS: Albuterol as needed, alprazolam 0.25 mg twice daily, Celexa 40 mg in the morning, Adderall 20 mg twice daily, fluticasone inhaler twice daily, Flonase as needed, gabapentin 600 mg 3 times daily, Lamictal 100 mg twice daily, Synthroid 100 mcg daily, lisinopril/hydrochlorothiazide 20/25 mg tablet daily, Claritin, Singulair, Spiriva, Ambien. FAMILY HISTORY: Brother had arthritis and hypertension. Father had COPD and hypertension as well as a myocardial infarction, diabetes, and arthritis. Mother also had arthritis and heart disease as well as hypertension. SOCIAL HISTORY: She currently smokes 1 pack per day for the last 24 years. She denies alcohol use or illicit drug use. REVIEW OF SYSTEMS: As noted above in the HPI, the rest of the review of systems was negative. PHYSICAL EXAMINATION: VITAL SIGNS: Blood pressure 148/87, pulse is 85, respiratory rate 18, temperature is 36.6 degrees Celsius, oxygen saturation is 96% on room air. GENERAL: The patient appears normally developed. She is obese. HEENT: Head is normocephalic and atraumatic. Normal eyelids, normal conjunctivae. NECK: Supple. LUNGS: Normal respiratory effort. CARDIAC: Pulses are normal. ABDOMEN: Nondistended. SKIN: No skin rash. PSYCHIATRIC: Normal mood and affect. NEUROLOGIC: She is awake, alert, oriented to person, place and time. Attention is normal. Knowledge is appropriate. Speech is clear. Comprehension is intact. No aphasia. Blinks to threat. Pupils are symmetric and reactive. Extraocular muscles are intact. No nystagmus. Facial sensation intact. Face is symmetric. Good shoulder shrug. Tongue midline. Gait of evaluation deferred. No tremor or myoclonic jerks, no ataxia with [id number] testing. Intact to light touch in terms of sensation. Normal muscle tone. Muscle strength reveals no focal weakness. Reflexes show a negative Filiberto sign bilaterally as well as no ankle clonus. DIAGNOSTIC TESTING AND LABORATORY VALUES: WBC 7.16, hemoglobin 10.3, platelet count 212. INR is 1.0. Sodium is 139, potassium 3.7, chloride 109, BUN 10, creatinine 0.80, glucose 101. Hemoglobin A1c 5.7. Iron is 17, which is low. Ferritin is 6.6, which is low. LDL cholesterol is 128. TSH was 18, which was elevated, free T4 was normal at 0.94. Urinalysis showed cloudy appearance, trace protein, trace ketones, 3+ blood, trace leukocyte esterase, 30 RBCs, greater than 30 epithelial cells. IMAGING: Head and neck CTA showed no significant stenosis, occlusion or aneurysm. There was no carotid stenosis. There were emphysema changes noted on the lungs. There was an 8 mm enhancing midline nodule anterior to the hyoid bone. CT head noncontrast showed no acute intracranial findings. No hemorrhage. Postoperative findings within the sinuses. ASSESSMENT AND PLAN: A 50-year-old woman with a history of bipolar mood disorder, anxiety and migraine headaches presenting with generalized fatigue, weakness as well as some intermittent speech difficulty in the setting of headache with nausea.. Differential diagnosis certainly includes a complicated migraine with a language aura Vs migraine headache with functional component.. Polypharmacy may be contributing to some of her symptoms. MRI brain w/wo reviewed with patient. Normal appearing brain MRI. I do not believe she had a stroke or TIA. Continue home medications. She can follow up with her PCP. She wishes to follow up with neurology PRN for now. MTDD
[2020-12-07] MEDS ORDERED: GADOBUTROL 30ML VIAL IV ONE (13:40)
--- NOTE | 2020-12-07 14:03 | Magnetic Resonance Report ---
Brain MRI WITH AND WITHOUT CONTRAST HISTORY: Dizziness. Slurred speech. Hand numbness. TECHNIQUE: Multiplanar multisequence MRI of the brain was performed both before and after the intrave nous administration of contrast. COMPARISON STUDY: Head CT 12/06/2020. Brain MRI 09/17/2011. FINDINGS: There are no areas of restricted diffusion to suggest acute infarction. The midline structu res are intact. Mild to moderate mucosal thickening within the left paranasal sinuses. There are smal l to moderate bilateral mastoid effusions. The ventricles and sulci are within normal limits for age. There is no mass, hematoma, midline shift. The major vascular flow-voids at the skull base are well maintained. Postcontrast sequences show no areas of abnormal enhancement. IMPRESSION: 1. No acute intracranial abnormality. 2. [id number] mucosal thickening within the left paranasal sinuses. 3. Small moderate bilateral mastoid effusions. ACT 112: Negative or not required by law. Electronically signed by: Dl Flores M.D. 12/07/2020 2:01 PM
[2020-12-07] MEDS ORDERED: STROKE PATIENT DISCHARGE STA (15:28)
--- NOTE | 2020-12-07 15:30 | Discharge Summary ---
Date of Service December 07, 2020 Admission HPI Per Admitting Provider This 50-year-old female with past medical history significant for COPD, chronic rhinitis, hypertension, GERD, degenerative joint disease, tobacco disorder, bipolar, anxiety, obesity, presents with stroke-like symptoms. The patient says yesterday she had a brief episode of 5-10 minutes of not able to speak, confused, that got resolved, but she was feeling weak and tired and sweating and that lasted since yesterday . The first episode of not able to speak on 12/05/2020 and 12/06/2020 morning also she had brief episodes of not able to speak but currently speech is back to normal, but still feeling weak and tired, which prompted her to come to the ER. She has been complaining of lot of headaches. Her blood pressure is running high, says she gets headache if the blood pressure goes high. She is taking saul nopril, hydrochlorothiazide for her blood pressure,has some blurred visions, but no double vision, no earache, no runny nose, no sore throat. She has chronic cough from her COPD. No loss of sense of smell or taste. Appetite is okay. Was nauseous earlier and had couple episodes of vomiting. No abdominal pain, no diarrhea or constipation, no blood in stools or black stools. No hematuria or burning micturition. No rash, no swelling in the legs, otherwise ambulating okay. No imbalance. Admission Exam Per Admitting Provider GENERAL: The patient is obese, not in acute distress. VITAL SIGNS: Temperature 36.3, pulse 91, respiratory rate 20, blood pressure 183/127, oxygen 96% room air. HEENT: Pupils equal, round, reactive to light. Oral mucosa moist. NECK: No JVD. No neck masses. CARDIOVASCULAR: S1, S2 heard, regular rate and rhythm, no murmur, no gallop. RESPIRATORY SYSTEM: Normal AP diameter. No accessory muscle use. No wheezing, no crackles. ABDOMEN: Soft, bowel sounds present, nontender. No distention. CENTRAL NERVOUS SYSTEM: Alert and oriented. Speech is clear, no facial droop. Cranial nerves II-XII grossly intact. Power 5/5 in all extremities. Coordination of movements normal. Sensation is intact. Position sense intact. EXTREMITIES: No edema, no erythema. Principal Diagnosis Complicated migraine Discharge Exam GENERAL: obese middle-aged female, not in acute distress. HEENT: NC/AT, Pupils equal, round, reactive to light. Oral mucosa moist. NECK: No JVD. No neck masses. CARDIOVASCULAR: S1, S2 heard, regular rate and rhythm, no murmur, no gallop. RESPIRATORY SYSTEM: Normal AP diameter. No accessory muscle use. No wheezing, no crackles. ABDOMEN: Soft, bowel sounds present, nontender. No distention. NEURO: Alert and oriented x3. Speech is clear, no facial droop, no facial asymmetry. Cranial nerves II-XII grossly intact. Power 5/5 in all extremities. Coordination of movements normal. Sensation is intact. Position sense intact. EXTREMITIES: No edema, no erythema. Discharge Data Allergies Allergy/AdvReac Type Severity Reaction Status Date / Time prochlorperazine AdvReac Severe facial Verified 12/07/20 00:31 dystonia Consultations 12/06/20 23:55 ED Decision to Admit Stat 12/07/20 08:00 Consult Neurology Routine Ordered Studies 12/06/20 22:08 CT head/brain wo con Urgent IMPRESSION: No acute intracranial findings. 12/06/20 22:09 CT angio head w con Urgent CT angio neck with con Urgent IMPRESSION: 1. No significant stenosis, occlusion, or aneurysm within the [place]. 2. No significant stenosis, occlusion, or dissection identified within the carotid or vertebral arteries. 3. Emphysema. 4. An 8 mm enhancing midline nodule anterior to the hyoid bone. This favors ectopic thyroid tissue. 12/07/20 04:39 MR brain wo/w con Routine IMPRESSION: 1. No acute intracranial abnormality. 2. Hgyw-aj-tcqjymkz mucosal thickening within the left paranasal sinuses. 3. Small moderate bilateral mastoid effusions. Hospital Course (1) Stroke-like symptoms: (2) Complicated migraine: This is a 50-year-old female who presents with stroke-like symptoms. 1. Stroke-like symptoms. 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 CT head, CTA of the head and neck was unremarkable. Brain MRI - No acute intracranial abnormality. Ifex-fg-narrmxpj mucosal thickening within the left paranasal sinuses. Small moderate bilateral mastoid effusions. Echocardiogram - normal LV chamber size with moderate concentric LVH. Hyperdynamic LV systolic function without regional wall motion abnormality, EF greater than 70%. Normal diastolic function. No catheter valvular cytology. The atrial sputum is intact with no evidence for an atrial septal defect. Injec tion of contrast intra-atrial shunt Tele: sinus rhythm Speech evaluation, neuro evaluation, PT, OT. Neurology consolidation, consistent with migraine headache with language aura, and likely polypharmacy contributing. 2. Weakness, not feeling well. COVID is negative. Her urine is slightly positive -positive for leukocytes and blood, but no bacteria. Empirically started on Rocephin. No bacteria in urine. gentle fluids and monitor Follow up abnormal UA as outpt Clinically patient feels much improved, and would like to be discharged and follow-up with family doctor. 3. Hypertensive urgency. Until stroke is ruled out, we will follow with permissive hypertension. Continue home lisinopril/hydrochlorothiazide and labetalol p.r.n. and monitor the blood pressure. Now Blood pressure normalized. 4. History of COPD. Continue home inhalers and nebs. 5. Obesity, needs counseling. 6. Bipolar disorder. Continue home medications. DVT prophylaxis, SCDs for now. Disposition: Plan to discharge home and follow with family doctor. Total Time Total Time Spent Total Time Spent (In Minutes): 35 Total Time Includes: Examination of the Patient, Discharge Planning, Medication Reconciliation and Communication With Other Providers Discharge Plan Discharge Items Patient Disposition: Home - Self-Care Reason For Visit: STROKE-LIKE SYMPTOMS Discharge Diagnosis: Complicated migraine Activity: Per Instructions section Non-emergency contact: Primary Care Provider Call non-emergency contact if: you have any medication questions and your symptoms worsen Follow-up/Referrals: Karie Grimes DO [Primary Care Provider] - (Date & Time 12/11/2020 11:10 AM Provider Karie Grimes DO Department [facility] ) Diet: Heart Healthy Addtl Attending Provider Instructions: Follow-up with your primary care doctor, the appointment was scheduled for you for December 11. You did not have a stroke, per neurology evaluation, you had a complicated migraine episode. Medications may be also contributing to this, and therefore please discuss with your healthcare providers if any medications could be decreased in dose or stopped. There were no medication changes done at this time. Consider taking daily baby aspirin. You can discuss this with your primary care doctor. Your TSH/thyroid lab, was elevated, please follow-up with your doctor regarding your thyroid. It is also strongly recommended that you quit smoking. Pending Studies at Discharge: No Stand-Alone Forms: My [facility], Smoking Cessation Medications and DC Order Prescriptions: New aspirin 81 mg Tablet,Delayed Release (Dr/Ec) 81 mg PO QAM Qty: 30 RF: 0 Continued citalopram [Celexa] 40 mg tablet 40 mg PO QAM RF: 0 albuterol sulfate [ProAir HFA] 90 mcg/actuation Hfa Aerosol Inhaler 2 puff INHALATION Q4H PRN (Reason: Shortness Of Breath) RF: 0 albuterol sulfate 2.5 mg /3 mL (0.083 %) solution for nebulization 2.5 mg INH QID PRN (Reason: shortness of breath or wheezing) Qty: 1 RF: 0 zolpidem [Ambien] 10 mg tablet 10 mg PO HS PRN (Reason: Sleep) RF: 0 Spiriva with HandiHaler 18 mcg Capsule, W/Inhalation Device 1 cap INHALATION QAM RF: 0 meloxicam 7.5 mg Tablet 7.5 mg PO DAILY RF: 0 montelukast [Singulair] 10 mg Tablet 10 mg PO QAM RF: 0 fluticasone propionate 50 mcg/actuation Robson,Suspension 2 spray INTRANASAL BID PRN (Reason: Congestion) RF: 0 loratadine [Claritin] 10 mg Tablet 10 mg PO QAM RF: 0 levothyroxine 100 mcg tablet 100 mcg PO DAILY RF: 0 dextroamphetamine-amphetamine 20 mg tablet 20 mg PO BID RF: 0 fluticasone propion-salmeterol 250-50 mcg/dose blister with device 1 ea INHALATION BID RF: 0 gabapentin 600 mg tablet 600 mg PO TID RF: 0 alprazolam 0.25 mg tablet 0.25 mg PO BID RF: 0 lamotrigine 100 mg tablet 100 mg PO BID RF: 0 lisinopril-hydrochlorothiazide 20 mg 1 tab PO DAILY RF: 0 Discharge Orders: Discharge Order (Routine); Ordered 12/07/20 Ordered By: Mikael Shaw Admission Data Admit Date/Time: 12/07/20 01:53 Attending Provider: Knab,Mikael F. Admit Provider: Jamie Flores Primary Care Provider: Karie Grimes Other Providers: Jamie Flores ; Tania Mcwilliams ; Jose Angel Alexis Kathleen ; Edy Jensen Other Interventions: Discharge Summary Assessment (RN) Last Done: 12/07/20 15:38
--- NOTE | 2020-12-07 16:08 | Electrocardiogram Report ---
Test Reason : Blood Pressure : / mmHG Vent. Rate : 084 BPM Atrial Rate : 084 BPM P-R Int : 142 ms QRS Dur : 084 ms QT Int : 350 ms P-R-T Axes : 062 057 057 degrees QTc Int : 413 ms Normal sinus rhythm Normal ECG When compared with ECG of 27-JAN-2019 14:02, No significant change was found Confirmed by Jose Devine ([id number]) on 12/07/2020 4:08:14 PM Referred By: REFERRED SELF Confirmed By:Shane Devine
[2020-12-10 08:55] LABS: 7-Aminoclonaz, Confirm NEGATIVE ng/mL (<25); Amphetamine Urine, Confirm 3280 ng/mL (<250); Hydro-Alp Ur, GC/MS 187 ng/mL (<25); Hydroxyethylflurazepam, Conf NEGATIVE ng/mL (<50); Hydroxymidazolam Ur, GC/MS NEGATIVE ng/mL (<50); Hydroxytriazolam NEGATIVE ng/mL (<50); Lorazepam, Ur GC/MS NEGATIVE ng/mL (<50); Marijuana Quant, GCMS Urine 674 ng/mL (<5); Methamphetamine, Ur Confirm NEGATIVE ng/mL (<250); Nordiazepam, Confirm NEGATIVE ng/mL (<50); Oxazepam Ur, GC/MS NEGATIVE ng/mL (<50); Temazepam, Confirm NEGATIVE ng/mL (<50)
== END 2020-12-07 16:15 | disposition home or self-care (01) | DRG 103 ==
LOC: ED 21:48 → 2S 12-07 01:53